=== PATIENT | male | born 1965 | race Caucasian/White ===

== ENCOUNTER 2022-05-11 15:50 | Emergency (ER) | payer BC, OTHER ==
[2022-05-11] MEDS ORDERED: Sodium Chloride 0.9% 10 ML Syringe FLUSH PRN (16:32)
[2022-05-11] MEDS ORDERED: Ketorolac 60 MG/2 ML SDV IM ONE (16:56)
[2022-05-11] MEDS ORDERED: Ondansetron 4 MG Tab.DIS PO ONE (16:56)
[2022-05-11 17:42] LABS: ESTIMATED GFR 79 mL/min (>60)
[2022-05-11] MEDS ORDERED: Tamsulosin 0.4 MG Cap.ER PO ONE (19:04)
== END 2022-05-11 19:30 | disposition home or self-care (01) ==
LOC: JD.ED 15:50
DX: N13.2 Hydronephrosis with renal and ureteral calculous obstruction (principal)
CPT/HCPCS: 36415; 74176; 80053; 81001; 85025; 86140; 96372; 99284; A9270; J1885